=== PATIENT | male | born 1995 | race Caucasian/White ===

== ENCOUNTER 2019-02-04 14:09 | Emergency (ER) | payer MEDICAID, OTHER ==
[2019-02-04] MEDS: PROPOFOL 200 MG INJ IV ×2 (15:21→15:37)
== END 2019-02-04 17:11 | disposition home or self-care (01) ==
LOC: E/R 14:09
DX: S43.004A Unspecified dislocation of right shoulder joint, initial encounter (principal); F17.210 Nicotine dependence, cigarettes, uncomplicated; Y04.0XXA Assault by unarmed brawl or fight, initial encounter
CPT/HCPCS: 23650; 73030-RT; 94770; 99285-25